=== PATIENT | female | born 1970 | race Caucasian/White ===

== ENCOUNTER 2024-12-14 11:33 | Emergency (ER) | payer MEDICAID ==
[~2024-12-14] VITALS: Ht 167.6 cm; Wt 59.0 kg
[2024-12-14] MEDS ORDERED: Acetaminophen/Oxycodone 5 MG/325 MG TABLET PO ONE (11:55)
[2024-12-14] MEDS ORDERED: NAPROSYN500 MG PO (13:13)
== END 2024-12-14 13:30 | disposition home or self-care (01) ==
LOC: ED 11:33
DX: S96.911A Strain of unspecified muscle and tendon at ankle and foot level, right foot, initial encounter (principal); Z98.890 Other specified postprocedural states; W06.XXXA Fall from bed, initial encounter; Y93.39 Activity, other involving climbing, rappelling and jumping off; Y92.89 Other specified places as the place of occurrence of the external cause; Y99.8 Other external cause status